=== PATIENT | male | born 1990 | race Caucasian/White ===

== ENCOUNTER 2021-12-06 04:07 | Emergency (ER) | payer MEDICAID ==
[2021-12-06] MEDS ORDERED: diphenhydrAMINE 50 MG/ML SDV IM PRN (05:30)
[2021-12-06] MEDS ORDERED: LORazepam 2 MG/ML SDV IM PRN (05:35)
[2021-12-06] MEDS ORDERED: Haloperidol Lactate 5 MG/ML SDV IM PRN (05:37)
== END 2021-12-06 06:50 | disposition left against medical advice (07) ==
LOC: LB.ED 04:07
DX: T40.711A Poisoning by cannabis, accidental (unintentional), initial encounter (principal); F19.10 Other psychoactive substance abuse, uncomplicated; F10.129 Alcohol abuse with intoxication, unspecified; F17.210 Nicotine dependence, cigarettes, uncomplicated
CPT/HCPCS: 36415; 70450; 72125; 80048; 80307; 85025; 93005; 93010; 99284-25; 99285

== ENCOUNTER 2022-05-19 11:12 | Emergency (ER) | payer MEDICAID | END 2022-05-19 12:38 | disposition home or self-care (01) | LOC: LB.ED 11:12 | DX: J00 Acute nasopharyngitis [common cold] (principal); F17.210 Nicotine dependence, cigarettes, uncomplicated; Z20.822 Contact with and (suspected) exposure to COVID-19 | CPT/HCPCS: 99283; U0002 ==

== ENCOUNTER 2023-05-28 16:41 | Emergency (ER) | payer MEDICAID ==
[2023-05-28] MEDS: LORazepam 1 MG Tab PO ONE (17:25)
[2023-05-28] MEDS: LORazepam 1 MG Tab ONE (20:03)
[2023-05-29] MEDS: Bacitracin Oint 1 GM U/D Packet TOP ONE (07:09)
== END 2023-05-29 11:20 | disposition home or self-care (01) ==
LOC: LB.ED 16:41
DX: F10.120 Alcohol abuse with intoxication, uncomplicated (principal); F19.10 Other psychoactive substance abuse, uncomplicated
CPT/HCPCS: 99284; 99285; A9270-GY

== ENCOUNTER 2023-08-19 00:01 | Emergency (ER) | payer MEDICAID ==
[2023-08-19] MEDS ORDERED: Sodium Chloride 0.9% 10 ML Syringe FLUSH PRN (00:43)
[2023-08-19] MEDS: levETIRAcetam 1,000 MG in Sodium Chloride 0.9% 100 ML IV ONE (01:03)
[2023-08-19 01:08] LABS: HEMATOCRIT 43.3 % (40.0-54.0); HEMOGLOBIN 14.9 g/dL (13.0-18.0); MEAN CORPUSCULAR HGB CONC 34.4 g/dL (31.0-35.0); MEAN PLATELET VOLUME 9.7 fL (6.0-10.0); RED BLOOD CELL COUNT 4.97 M/uL (4.50-6.50); RED CELL DISTRIBUTION WIDTH 12.8 % (11.0-16.0); WHITE BLOOD CELL COUNT,WBC 8.9 K/uL (4.0-11.0)
[2023-08-19 01:14] LABS: ANION GAP 12.3 mmol/L (5.0-15.0); CALCIUM 8.5 mg/dL (8.5-10.1); CARBON DIOXIDE,CO2 28.6 mmol/L (21.0-32.0); CREATININE 0.9 mg/dL (0.70-1.30); EST CRCL DRUG DOSING (CG) 92.69 mL/min; MAGNESIUM 1.6 mg/dL (1.8-2.4); POTASSIUM,K 3.9 mmol/L (3.5-5.1)
[2023-08-19] MEDS: Sodium Chloride 0.9% 1,000 ML IV SCH (01:19)
[2023-08-19] MEDS: Ketorolac 30 MG/ML SDV IVPUSH ONE (01:20)
== END 2023-08-19 03:55 | disposition home or self-care (01) ==
LOC: LB.ED 00:01
DX: R56.9 Unspecified convulsions (principal); F17.210 Nicotine dependence, cigarettes, uncomplicated; Z88.8 Allergy status to other drugs, medicaments and biological substances; Z88.1 Allergy status to other antibiotic agents
CPT/HCPCS: 36415; 80048; 83735; 85027; 96365; 96367; 96375; 99283; 99284-25; J1885; J1953; J3475; J3490; J7030

== ENCOUNTER 2023-08-29 00:05 | Emergency (ER) | payer MEDICAID ==
[2023-08-29 01:14] LABS: BASOPHILS ABSOLUTE AUTO 0.02 K/uL (0.02-0.10); BASOPHILS PERCENT AUTO 0.3 % (0.0-0.5); EOSINOPHILS ABSOLUTE AUTO 0.42 K/uL (0.04-0.40); EOSINOPHILS PERCENT AUTO 5.3 % (1.0-5.0); HEMATOCRIT 37.6 % (40.0-54.0); HEMOGLOBIN 13.7 g/dL (13.0-18.0); LYMPHOCYTES ABSOLUTE AUTO 2.61 K/uL (1.50-4.00); LYMPHOCYTES PERCENT AUTO 32.9 % (20.0-40.0); MEAN CORPUSCULAR HEMOGLOBIN 30.1 pg (27.0-32.0); MEAN CORPUSCULAR HGB CONC 36.4 g/dL (31.0-35.0); MEAN CORPUSCULAR VOLUME 83 fL (76-96); MEAN PLATELET VOLUME 9.3 fL (6.0-10.0); MONOCYTES ABSOLUTE AUTO 0.58 K/uL (0.20-0.80); MONOCYTES PERCENT AUTO 7.3 % (3.0-10.0); NEUTROPHILS PERCENT AUTO 54.2 % (45.0-70.0); PLATELET COUNT,PLT 242 K/uL (150-400); RED BLOOD CELL COUNT 4.55 M/uL (4.50-6.50); RED CELL DISTRIBUTION WIDTH 13.2 % (11.0-16.0); WHITE BLOOD CELL COUNT,WBC 7.9 K/uL (4.0-11.0)
[2023-08-29 01:25] LABS: A/G RATIO 1.3 (0.8-2.0); ALBUMIN 3.4 g/dL (3.4-5.0); ANION GAP 7.9 mmol/L (5.0-15.0); BILIRUBIN TOTAL 0.2 mg/dL (0.0-1.0); CALCIUM 8.6 mg/dL (8.5-10.1); CREATININE 0.81 mg/dL (0.70-1.30); EST CRCL DRUG DOSING (CG) 102.98 mL/min; POTASSIUM,K 3.9 mmol/L (3.5-5.1)
[2023-08-29 02:21] VITALS: PULSE 63
[2023-08-29 02:22] VITALS: BP 119/84
== END 2023-08-29 02:08 | disposition home or self-care (01) ==
LOC: LB.ED 00:05
DX: R56.9 Unspecified convulsions (principal); Z86.59 Personal history of other mental and behavioral disorders; Z79.899 Other long term (current) drug therapy; Z88.8 Allergy status to other drugs, medicaments and biological substances
CPT/HCPCS: 36415; 80053; 82550; 85025; 99284

== ENCOUNTER 2024-01-14 22:20 | Emergency (ER) | payer MEDICAID ==
[2024-01-14] MEDS: Tetracaine HCl/PF 0.5% 4 ML Bottle EYEBOTH ONE (22:53)
[2024-01-15] MEDS: prednisoLONE Acetate 1% Ophth Susp 5 ML Bottle EYEBOTH SCH (08:59)
[2024-01-18] MEDS: Ibuprofen 400 MG Tab PO ONE (08:40)
== END 2024-01-15 09:05 | disposition home or self-care (01) ==
LOC: LB.ED 22:20
DX: H16.133 Photokeratitis, bilateral (principal); Z79.899 Other long term (current) drug therapy; Z88.8 Allergy status to other drugs, medicaments and biological substances; Z88.1 Allergy status to other antibiotic agents; W89.0XXA Exposure to welding light (arc), initial encounter
CPT/HCPCS: 99283

== ENCOUNTER 2024-09-02 15:53 | Emergency (ER) | payer MEDICAID | END 2024-09-02 18:10 | LOC: LB.ED 15:53 | DX: T14.91XA Suicide attempt, initial encounter (principal); L53.9 Erythematous condition, unspecified; F17.210 Nicotine dependence, cigarettes, uncomplicated; Z88.8 Allergy status to other drugs, medicaments and biological substances; Z88.1 Allergy status to other antibiotic agents; Z79.899 Other long term (current) drug therapy; X83.8XXA Intentional self-harm by other specified means, initial encounter | CPT/HCPCS: 72125; 99284; 99285 ==

== ENCOUNTER 2025-03-05 15:02 | Emergency (ER) | payer MEDICAID | END 2025-03-05 15:46 | disposition left against medical advice (07) | LOC: LB.ED 15:02 | DX: F12.10 Cannabis abuse, uncomplicated (principal); F17.200 Nicotine dependence, unspecified, uncomplicated; Z88.8 Allergy status to other drugs, medicaments and biological substances; Z79.899 Other long term (current) drug therapy; Z86.16 Personal history of COVID-19 | CPT/HCPCS: 99283 ==